=== PATIENT | male | born 1955 | race Caucasian/White ===

== ENCOUNTER 2020-10-24 07:22 | Observation (INO) | payer BC, OTHER ==
[~2020-10-24] VITALS: Ht 190.5 cm; Wt 107.5 kg
[2020-10-24] MEDS ORDERED: METOPROLOL SUCC50 MG PO (08:10)
[2020-10-24] MEDS ORDERED: ATORVASTATIN CA10 MG PO (08:10)
[2020-10-24] MEDS ORDERED: XARELTO20 MG PO (08:11)
[2020-10-24] MEDS ORDERED: MONTELUKAST SOD10 MG PO (08:12)
[2020-10-24] MEDS ORDERED: LOSARTAN POTAS100 MG PO (08:13)
[2020-10-24] MEDS ORDERED: VITAMIN D31250 MCG PO (08:14)
[2020-10-24] MEDS ORDERED: SYMBICORT 80-10.2 GM INH (08:14)
[2020-10-24] MEDS ORDERED: LEVOTHYROXINE25 MCG PO (08:15)
[2020-10-24] MEDS ORDERED: VENTOLIN HFA 66.7 GM INH (08:16)
[2020-10-24] MEDS ORDERED: ACETAMINOPHEN650 M2 PO (08:17)
[2020-10-24 11:26] LABS: HEMOGLOBIN 12.6 gm/dl (14.0-17.5); RED BLOOD COUNT 4.07 M/UL (4.20-5.50); WHITE BLOOD COUNT 7.7 K/UL (4.5-11.0)
[2020-10-25 03:14] LABS: HEMOGLOBIN 11.7 gm/dl (14.0-17.5); RED BLOOD COUNT 3.67 M/UL (4.20-5.50); WHITE BLOOD COUNT 6.6 K/UL (4.5-11.0)
[2020-10-25 03:30] LABS: BUN/CREATININE RATIO 14 (0-10)
--- NOTE | 2020-10-25 10:58 | NUR ---
THIS AM AT APPROX 0945 DR MAGGIE GARNICA AND HERBERT MYSELF AND DEMI CRUZ ASSISTANCED WITH RALF AND CARDIAVERSION AT BEDSIDE WITH PT , PT RECEIEVED 11 VERSED IVP ALSO FENTAYNL 50 MCG IVP FOR RALF AND CARDIOVERSION, PT WAS SHOCKED X2 @ 0950 AND 0954 200 JEWLS AND CONVERTED , TELE AWARE OF PROCEDURE, PT TOLERATED WITH MINIMAL DISCOMFORT NOTED V/S STABLE AND PUNCH OUT CREW MEMBER WAS CONTINOUS ALSO 02 @ 2LBNC, AND SUCTION ALSO IN USE, 117/83 / 125/80 / 135/87 131/77 / 123/79 / CONVERTED HR 79 NOTED SATS REMAINED 95-100 ON 2LBNC, FAMILY AT BEDSIDE AFTER PROCEDURE, PT TO REMAIN NPO UNTIL LUNCH UNTIL SOME MEDS WEAR OFF, FAMILY AT BEDSIDE , PT WILL HAVE SOME MEDS CHANGED PER CARDIO AND EKG AT NOON TOMORROW BEFORE HE IS TO BE DISCHARGED. CAROLINE CRUZ HIS NURSE IS AWARE OF PROCEDURE AND THE RESULTS .
[2020-10-26 02:46] LABS: HEMOGLOBIN 11.5 gm/dl (14.0-17.5); RED BLOOD COUNT 3.61 M/UL (4.20-5.50); WHITE BLOOD COUNT 7.6 K/UL (4.5-11.0)
[2020-10-26] MEDS ORDERED: SOTALOL80 MG PO (15:48)
== END 2020-10-26 16:44 | disposition home or self-care (01) ==
LOC: CATH 07:22 → M/S 14:08 → CATH 11-23 08:00
PROVIDERS: Nurse Practitioner; ADMIT Internal Medicine Interventional Cardiology
DX: I48.91 Unspecified atrial fibrillation (principal); I10 Essential (primary) hypertension; I08.1 Rheumatic disorders of both mitral and tricuspid valves; E78.5 Hyperlipidemia, unspecified; K64.8 Other hemorrhoids; E03.9 Hypothyroidism, unspecified; E55.9 Vitamin D deficiency, unspecified; Z79.899 Other long term (current) drug therapy; F17.210 Nicotine dependence, cigarettes, uncomplicated; E66.9 Obesity, unspecified; Z82.49 Family history of ischemic heart disease and other diseases of the circulatory system
CPT/HCPCS: 36415; 80048; 85025; 85027; 85610; 85730; 93005; 93312; 93320; 94640; 94664; 94760; 96374; 96376; G0378; J1644; J1742; J2250; J2310; J3010; J7050

== ENCOUNTER → 2021-01-29 | Outpatient (CLI) | payer BC ==
[~2021-01-29] MED LIST: ACETAMINOPHEN650 M2 PO; ATORVASTATIN CA10 MG PO; LEVOTHYROXINE25 MCG PO; LOSARTAN POTAS100 MG PO; METOPROLOL SUCC50 MG PO; MONTELUKAST SOD10 MG PO; SOTALOL80 MG PO; SYMBICORT 80-10.2 GM INH; VENTOLIN HFA 66.7 GM INH; VITAMIN D31250 MCG PO; XARELTO20 MG PO
[2021-01-29 10:33] LABS: HEMOGLOBIN 12.9 gm/dl (14.0-17.5); RED BLOOD COUNT 4.03 M/UL (4.20-5.50); WHITE BLOOD COUNT 7.3 K/UL (4.5-11.0)
[2021-01-29 11:00] LABS: BUN/CREATININE RATIO 11 (0-10)
[2021-01-30 08:13] LABS: PROSTATE SPECIFIC AG, SERUM 0.6 ng/mL (0.0-4.0); VITAMIN D, 25-HYDROXY 41.1 ng/mL (30.0-100.0)
== END ==
LOC: LAB 09:09
PROVIDERS: Nurse Practitioner Family
DX: E78.5 Hyperlipidemia, unspecified (principal); E03.9 Hypothyroidism, unspecified; I10 Essential (primary) hypertension
CPT/HCPCS: 36415; 80053; 80061; 82607; 84153; 84439; 84443; 85025

== ENCOUNTER → 2021-08-13 | Outpatient (CLI) | payer OTHER ==
[2021-08-13 10:12] LABS: HEMOGLOBIN 12.2 gm/dl (14.0-17.5); RED BLOOD COUNT 3.86 M/UL (4.20-5.50); WHITE BLOOD COUNT 8.2 K/UL (4.5-11.0)
[2021-08-13 10:36] LABS: BUN/CREATININE RATIO 12 (0-10)
== END ==
LOC: LAB 08:38
PROVIDERS: Nurse Practitioner Family
DX: E78.5 Hyperlipidemia, unspecified (principal); E03.9 Hypothyroidism, unspecified; R73.01 Impaired fasting glucose; E53.8 Deficiency of other specified B group vitamins; E55.9 Vitamin D deficiency, unspecified
CPT/HCPCS: 36415; 80053; 80061; 82570; 82607; 83036; 84156; 84439; 84443; 85025